=== PATIENT | female | born 1975 | race African-American/Black ===

== ENCOUNTER 2016-08-25 07:03 | Day surgery (SDC) | payer BC ==
[~2016-08-25 07:03] MED LIST: Buffered Lidocaine 1% SYR 3ML* 3 ML/SYR SYRINGE INTRADERM ONE; Famotidine IV* 10 MG/ML 2 ML (20 mg) IV ONE; Morphine INJ* 2 MG/ML 1 ML CARPUJECT IV PRN; PROCHLORPERAZINE INJ 5 MG/ML 2 ML VIAL IV PRN; fentaNYL* 50 MCG/ML 2 ML VIAL (100 MCG VIAL) IV PRN; oxyCODONE/Acetamin 5/325 MG* TAB PO PRN
[2016-08-25] MEDS ORDERED: Famotidine IV* 10 MG/ML 2 ML (20 mg) ONE (07:20)
[2016-08-25] MEDS ORDERED: Clindamycin 900 MG IVPREMIX(* 900 MG/50 ML SDV IV ONE (07:20)
[2016-08-25 07:30] LABS: Manual Entry Verification AS; UR Preg Internal Control QC Line Present; UR Preg Kit Lot# 6060104
[2016-08-25] MEDS ORDERED: fentaNYL* 50 MCG/ML 2 ML VIAL (100 MCG VIAL) ONE (07:52)
[2016-08-25] MEDS ORDERED: Midazolam* 1 MG/ML 5 ML VIAL (5 MG) ONE (07:52)
[2016-08-25] MEDS ORDERED: KETAMINE HCL* 50 MG/ML 10 ML VIAL ONE (07:52)
[2016-08-25] MEDS ORDERED: EPINEPHrine AMP 1 MG/ML ONE (08:21)
[2016-08-25] MEDS ORDERED: Bupivacaine 0.5% W/EPI SDV* 30 ML VIAL ONE (08:22)
[2016-08-25] MEDS ORDERED: Dexamethasone IV* 4 MG/ML 1 ML (4 MG) ONE (09:56)
[2016-08-25] MEDS ORDERED: Lidocaine 2% PF * 5 ML VIAL ONE (09:56)
[2016-08-25] MEDS ORDERED: Propofol* 10 MG/ML 20 ML BTL IV PUSH ONE (09:56)
[2016-08-25] MEDS ORDERED: Ondansetron INJ* 2 MG/ML VIAL ONE (09:56)
[2016-08-25] MEDS ORDERED: Morphine INJ* 10 MG/ML 1 ML CARPUJECT ONE (10:27)
[2016-08-25 12:49] VITALS: BP 118/80
--- NOTE | 2016-08-28 03:53 | OP ---
DATE OF OPERATION: 08/25/16 - [facility] DATE OF : 77 SURGEON: Matthew Lima MD ROLLER HAND: JUSTICE Zimmerman ANESTHESIOLOGIST: Dr. Bobo Hansen. ANESTHESIA: General anesthesia, LMA, regional anesthesia, interscalene block, right. PRE-OP DIAGNOSES: 1. Right shoulder rotator cuff tear, supraspinatus. 2. Right shoulder subacromial impingement with a prominent lateral spur as well as anterior. 3. Right shoulder AC joint arthritis. 4. Right shoulder possible proximal biceps tendinitis or superior labral tear. POST-OP DIAGNOSES: 1. Right shoulder rotator cuff tear, supraspinatus. 2. Right shoulder subacromial impingement with especially prominent lateral spur as well as anterior spur. 3. Right shoulder AC joint arthritis. 4. Right shoulder superior labral tear. OPERATIVE PROCEDURES: 1. Right shoulder examination under anesthesia. 2. Right shoulder arthroscopic rotator cuff repair, supraspinatus, double row. 3. Right shoulder subacromial decompression, arthroscopic. 4. Right shoulder arthroscopic distal clavicle resection. 5. Right shoulder arthroscopic extensive debridement including the superior labrum as well as the subacromial bursa. 6. Right shoulder arthroscopic release of proximal biceps tendon. ANTIBIOSIS: Clindamycin 900 mg IV x1. IV FLUIDS: See Anesthesia note. ESTIMATED BLOOD LOSS: Minimal. COMPLICATIONS: None. IMPLANTS: Mitek helix 5.5 mm double loaded suture anchors x2. Mitek helix knotless 5 mm suture anchor x1. 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 The patient states that her shoulder was jerked violently in the fall. Of note, the patient has a history of bariatric sleeve surgery. On exam, the patient had pain with supraspinatus stress testing, AC joint tenderness to palpation, proximal biceps tenderness to palpation, and a positive Speeds' test. X-rays demonstrated a large lateral acromial spur and significant downsloping of the anterior acromion. AC joint narrowing was also present. An MRI demonstrated full-thickness anterior supraspinatus rotator cuff tear, 14 mm anterior to posterior x9 mm, with fluid in the biceps tendon groove and moderate AC joint osteoarthritis. It should be noted that the patient also had a significant amount of subcutaneous tissue in her upper arm. The patient responded insufficiently to nonoperative management and opted for operative intervention which makes sense given the full thickness of this rotator cuff tear and the patient's young age and this being her dominant shoulder. DESCRIPTION OF PROCEDURE: Preoperative written consent. Operative extremity was marked in preop holding. At preop holding, Dr. Hansen did a regional interscalene anesthetic block. The patient was taken back to the operating room and placed in the lateral decubitus position in which Dr. Hansen placed the LMA. Axillary roll was placed. All bony prominences were padded. A beanbag was inflated. The right upper extremity was placed in 10 pounds of traction. Before the arm was placed in traction, examination under anesthesia was performed and demonstrated full passive range of motion in all directions of the right shoulder. The patient once in the traction had the right shoulder prepped and draped. Surgical time-out was performed. 20 cc of normal saline were injected from posterior end of the glenohumeral joint. A posterior glenohumeral joint portal was established using standard technique. Diagnostic arthroscopy was commenced. Anterior glenohumeral joint portal was established under direct visualization. Intra-articularly, I encountered a superior labral tear with 45 mm of lift off of the superior labrum from the superior rim of the glenoid. There was certainly some exposed superior labral footprint along the glenoid rim. This finding, in conjunction with the fluid seen on MRI of the biceps tendon sheath dictated that a biceps release would likely help pain referable both to the superior labral tear and the biceps pathology. Therefore , arthroscopic scissors were introduced from anterior and were used to cut the biceps near its origin. An arthroscopic shaver was used to debride the superior labrum as well as mild amount of rotator interval inflamed tissue. No significant articular cartilage damage was noted at the glenoid or the humeral head. Full thickness supraspinatus rotator cuff tendon tear was clearly visible within the joint. Instruments and fluid were removed from the glenohumeral joint. Subacromial space was then entered from posterior and anterior. Bursitis was less significant than I often see with rotator cuff tears, but the lateral subacromial portal was established under direct visualization and an arthroscopic shaver was introduced and used to debride bursitis tissue. Rotator cuff tear, crescent- shaped, the width of the supraspinatus tendon, was appreciated. VAPR was used to debride the undersurface of the acromion and then a subacromial decompression was performed with an arthroscopic ava. I removed at least 6 mm of the anterior hook of the acromion, which included prominent spur. I tried to come as posteriorly as possible and flatten out the significant lateral curve of the acromion noted on preoperative x-rays. I then prepared the rotator cuff tear and footprint, with the shaver debriding the edge of the rotator cuff tendon tissue and with a ava , debriding the rotator cuff footprint. I passed 2 suture anchors into the medial rotator cuff footprint through a superolateral incision. Horizontal mattress stitches were placed using a MiteMoxie JeanA passing device. These were then tied. Sutures from the medial row were then incorporated into a knotless lateral row Mitek anchor. This produced excellent connection of the torn rotator cuff to the rotator cuff footprint. Confirmed stability of the repair with range of motion of the humerus, internal and external rotation as well as with probing with an arthroscopic probe. I then addressed my attention to the AC joint. Bursitis was debrided with the shaver and VAPR. I then removed 8 mm of the distal clavicle with an arthroscopic ava. Instruments and fluid were removed from the subacromial space. The skin incisions were closed with figure- of-eight stitches using nylon 4- 0 suture, Xeroform, 4x4s, ABD, foam tape. The patient was placed into a sling with an abduction pillow. The patient was awakened, extubated, returned to the supine position. DISPOSITION: The patient was discharged when medically stable. The patient will follow up with me in 10 to 14 days postoperative. She will wear her sling and abduction pillow at all times except to come out several times a day for range of motion elbow, wrist, and fingers. Antibiotics, aspirin, Percocet. [id number]/CPS #: [id number] MADELYN
== END 2016-08-25 12:56 | disposition home or self-care (01) ==
LOC: OR 07:03
PROVIDERS: ATTEND Orthopaedic Surgery
DX: S46.011A Strain of muscle(s) and tendon(s) of the rotator cuff of right shoulder, initial encounter (principal); S43.491A Other sprain of right shoulder joint, initial encounter; M75.41 Impingement syndrome of right shoulder; M19.011 Primary osteoarthritis, right shoulder; W00.0XXA Fall on same level due to ice and snow, initial encounter; Y92.9 Unspecified place or not applicable
CPT/HCPCS: 81025; J0171; J1100; J2250; J2270; J2405; J2704; J3010

== ENCOUNTER 2017-03-11 10:17 | Emergency (ER) | payer BC ==
[2017-03-11] MEDS ORDERED: Ondansetron INJ* 2 MG/ML VIAL IV ONE (12:01)
[2017-03-11] MEDS ORDERED: Morphine INJ* 4 MG/ML 1 ML SYRINGE IV ONE (12:01)
[2017-03-11] MEDS ORDERED: NS 0.9% 1000 ML* 1,000 ML IV ONE (12:01)
[2017-03-11 12:46] LABS: Hematocrit 39 % (35-47); Hemoglobin 12.4 g/dl (12.0-16.0); Mean Corpuscular HGB Conc 32 g/dl (31-36); Mean Corpuscular Hemoglobin 27 pg (27-31); Mean Corpuscular Volume 83 fL (80-97); Mean Platelet Volume 7 um3 (7.4-10.4); Red Blood Count 4.67 10^6/ul (4.0-5.4); Red Cell Distribution Width 14 % (10.5-15)
[2017-03-11 13:06] LABS: ALT 24 U/L (7-52); AST 19 U/L (13-39); Albumin 4.1 g/dL (3.2-5.2); Alkaline Phosphatase 51 U/L (34-104); Anion Gap 4 mmol/L (2-11); BUN/Creatinine Ratio 16.7 (8-20); Blood Urea Nitrogen 11 mg/dL (6-24); CO2 Carbon Dioxide 28 mmol/L (22-32); Calcium 9.2 mg/dL (8.6-10.3); Chloride 105 mmol/L (101-111); EGFR African American 127.6 (>60); EGFR Non-African American 99.2 (>60); Globulin 2.7 g/dL (2-4); Glucose 88 mg/dL (70-100); Lipase 19 U/L (11.0-82.0); Potassium 4.1 mmol/L (3.5-5.0); Sodium 137 mmol/L (133-145); Total Protein 6.8 g/dL (6.4-8.9)
--- NOTE | 2017-03-11 13:16 | RAD ---
INDICATION: Left flank abdominal pain, known kidney stone. COMPARISON: Comparison is made with a prior CT of the abdomen and pelvis from January 30, 2014. TECHNIQUE: A CT scan of the abdomen and pelvis was performed without intravenous or oral contrast. Contiguous axial sections were obtained from the lung bases through the symphysis pubis. Images were reconstructed in the coronal and sagittal planes. FINDINGS: The lung bases are clear. No pleural effusion is present. The liver appears moderately enlarged and unchanged from the prior study. The spleen is normal in size. No significant focal abnormalities are seen on this noncontrast study. There is a faint calcification within the gallbladder possibly indicating cholelithiasis. The gallbladder is not distended. No gallbladder wall thickening is seen. The pancreas is not well-defined on this study although no gross abnormality is seen. The adrenal glands appear to be within normal limits. There are several small nonobstructing calculi in the lower pole of the left kidney measuring up to 0.4 cm in size. In addition there is a large calculus present within the left renal pelvis measuring up to 0.9 cm in size. No hydronephrosis is seen. In addition there are several small calcifications located on both sides along the posterior aspect of the urinary bladder likely representing phleboliths although a small nonobstructing calculus in the distal left ureter cannot be excluded. The aorta is normal in caliber without significant calcific plaque. No enlarged retroperitoneal lymph nodes are seen although the examination is limited due to a paucity of abdominal fat. The patient appears to be status post sleeve gastrectomy. The stomach, small and large bowel appear nondistended. The appendix is not well seen on this noncontrast study. There is a moderate to large amount of stool present throughout the colon. There is no evidence for diverticulitis or colitis. There is a small periumbilical hernia containing fat. The uterus is retroverted and enlarged. There is a T-shaped IUD present and a large peripherally calcified mass in the fundus of the uterus measuring 4.5 cm in size which is unchanged from the prior exam most consistent with a partially calcified leiomyoma. There is a tampon present within the vagina. No free intraperitoneal air or fluid is seen. No significant focal osseous abnormality is seen. IMPRESSION: 1. THERE IS A 0.9 CM CALCULUS PRESENT WITHIN THE LEFT RENAL PELVIS. THERE ARE SEVERAL ADDITIONAL LEFT LOWER POLE RENAL CALCULI. NO HYDRONEPHROSIS IS SEEN. THERE ARE ALSO CALCIFICATIONS ALONG THE POSTERIOR ASPECT OF THE URINARY BLADDER LIKELY REPRESENTING PHLEBOLITHS ALTHOUGH A NONOBSTRUCTING CALCULUS IN THE DISTAL LEFT URETER CANNOT BE EXCLUDED. 2. FIBROID UTERUS. 3. POSSIBLE CHOLELITHIASIS. 4. LARGE AMOUNT RETAINED STOOL.
[2017-03-11 15:16] LABS: Urine Bilirubin Negative (Negative); Urine Glucose Negative (Negative); Urine Nitrite Negative (Negative)
--- NOTE | 2017-03-11 15:44 | ED ---
Neli Martinez Edward, scribed for Cricket Magallon on 03/11/17 at 1137 . GI/ HPI - HPI Summary HPI Summary: 41 y/o female presents to the ED c/o sudden onset, waxing and waning L sided flank pain starting last night that became worse this morning. The pain radiates around the back. It is rated at 7/10 in severity at triage. Denies blood in the urine. Associated sx: chronic lower ABD pain (1 month) aggravated with food - pt has an appointment for a CT scan regarding this pain with Dr. Danielson. PMHx fibroid, kidney stones. SHx gastrectomy. Pt is on her period. - History of Current Complaint Chief Complaint: EDFlankPain Time Seen by Provider: 03/11/17 11:35 Stated Complaint: LEFT FLANK PAIN Hx Obtained From: Patient Onset/Duration: Started Days Ago, Worse Since - This morning Severity: Moderate Current Severity: Moderate Pain Intensity: 7 Pain Radiates to: Back Associated Signs and Symptoms: Positive: Flank Pain - L side, Abdominal Pain. Negative: Other: - No blood in the urine, no vaginal discharge - Additional Pertinent History Primary Care Physician: [id number] - Allergy/Home Medications Allergies/Adverse Reactions: Allergies Allergy/AdvReac Type Severity Reaction Status Date / Time Metronidazole Allergy BURNING Verified 08/25/16 07:38 [From MetroGel-Vaginal] Penicillins Allergy Rash Verified 08/25/16 07:38 PMH/Surg Hx/FS Hx/Imm Hx Previously Healthy: No Endocrine/Hematology History: Denies: Hx Diabetes Cardiovascular History: Denies: Hx Hypertension, Hx Pacemaker/ICD Respiratory History: Denies: Other Respiratory Problems/Disorders GI History: Denies: Other GI Disorders History: Reports: Hx Kidney Stones - 2 CURRENTLY ON LEFT, Other Problems/ Disorders - Fibroid Denies: Hx Renal Disease Musculoskeletal History: Reports: Hx Arthritis - HIPS Sensory History: Reports: Hx Contacts or Glasses - GLASSES Denies: Hx Hearing Aid Opthamlomology History: Reports: Hx Contacts or Glasses - GLASSES Psychiatric History: Denies: Hx Panic Disorder - Surgical History Surgery Procedure, Year, and Place: 1986-LEFT HIP PINNING and REMOVAL OF PIN, [place]. 1995-BIL[place]AL BRE[place]U[facility], [place]. [facility] [place]STOSCOPY, URETEROSCOPY, [place] U[place] [facility] [place] ESWL LEFT RENAL CALCULUS, REMOVAL OF LEFT [place]TERAL STENT, [facility] [place]. 2015 LAPAROSCOPIC SLEEVE GASTRECTOMY, [facility] [place] Hx Anesthesia Reactions: No Infectious Disease History: No Infectious Disease History: Denies: Traveled Outside the [place] in Last 30 Days - Family History Known Family History: Negative: Other - Bleeding/clotting disorders - Social History Alcohol Use: None Alcohol Amount: MAYBE 5 PER YEAR, SPECIAL OCCASIONS Hx Substance Use: No Substance Use Type: Reports: None Hx Tobacco Use: No Smoking Status (MU): Never Smoked Tobacco Review of Systems Constitutional: Negative Eyes: Negative ENT: Negative Cardiovascular: Negative Respiratory: Negative Positive: Abdominal Pain Positive: flank pain - L. Negative: discharge, hematuria Musculoskeletal: Negative Skin: Negative Neurological: Negative Psychological: Normal All Other Systems Reviewed And Are Negative: Yes Physical Exam Triage Information Reviewed: Yes Vital Signs On Initial Exam: Initial Vitals Temp Pulse Resp BP Pulse Ox 97.8 F 64 17 114/73 100 03/11/17 10:24 03/11/17 10:24 03/11/17 10:24 03/11/17 10:24 03/11/17 10:24 Vital Signs Reviewed: Yes Appearance: Positive: Well-Appearing, No Pain Distress Skin: Positive: Warm, Skin Color Reflects Adequate Perfusion, Dry Head/Face: Positive: Normal Head/Face Inspection Eyes: Positive: EOMI, GUILLERMO ENT: Positive: Normal ENT inspection Neck: Positive: Supple, Nontender Respiratory/Lung Sounds: Positive: Clear to Auscultation, Breath Sounds Present Cardiovascular: Positive: RRR, Pulses are Symmetrical in both Upper and Lower Extremities Abdomen Description: Positive: Soft, Other: - Mild tenderness in the LLQ Bowel Sounds: Positive: Present Musculoskeletal: Positive: Normal, Strength/ROM Intact Neurological: Positive: Normal, Sensory/Motor Intact, Alert, Oriented to Person Place, Time Diagnostics - Vital Signs Vital Signs Temp Pulse Resp BP Pulse Ox 03/11/17 10:24 97.8 F 64 17 114/73 100 - Laboratory Result Diagrams: 03/11/17 12:30 03/11/17 12:30 Lab Statement: Any lab studies that have been ordered have been reviewed, and results considered in the medical decision making process. - CT ABD/PEL CT CT Interpretation: No Acute Changes - 1. THERE IS A 0.9 CM CALCULUS PRESENT WITHIN THE LEFT RENAL PELVIS. THERE ARE SEVERAL ADDITIONAL LEFT LOWER POLE RENAL CALCULI. NO HYDRONEPHROSIS IS SEEN. THERE ARE ALSO CALCIFICATIONS ALONG THE POSTERIOR ASPECT OF THE URINARY BLADDER LIKELY REPRESENTING PHLEBOLITHS ALTHOUGH A NONOBSTRUCTING CALCULUS IN THE DISTAL LEFT URETER CANNOT BE EXCLUDED. 2. FIBROID UTERUS. 3. POSSIBLE CHOLELITHIASIS. 4. LARGE AMOUNT RETAINED STOOL. ED PHYSICIAN AGREEABLE CT Interpretation Completed By: Radiologist Re-Evaluation - Re-Evaluation 1 Re-Evaluation Time: 15:19 GIGU Course/Dx - Course Assessment/Plan: 41 y/o female presents to the ED c/o sudden onset, waxing and waning L sided flank pain starting last night that became worse this morning. The pain radiates around the back. It is rated at 7/10 in severity at triage. Denies blood in the urine. Associated sx: chronic lower ABD pain (1 month) aggravated with food - pt has an appointment for a CT scan regarding this pain with Dr. Danielson. PMHx fibroid, kidney stones. SHx gastrectomy. Pt is on her period. ABD/PEL CT SHOWS 1. THERE IS A 0.9 CM CALCULUS PRESENT WITHIN THE LEFT RENAL PELVIS. THERE ARE SEVERAL ADDITIONAL LEFT LOWER POLE RENAL CALCULI. NO HYDRONEPHROSIS IS SEEN. THERE ARE ALSO CALCIFICATIONS ALONG THE POSTERIOR ASPECT OF THE URINARY BLADDER LIKELY REPRESENTING PHLEBOLITHS ALTHOUGH A NONOBSTRUCTING CALCULUS IN THE DISTAL LEFT URETER CANNOT BE EXCLUDED. 2. FIBROID UTERUS. 3. POSSIBLE CHOLELITHIASIS. 4. LARGE AMOUNT RETAINED STOOL. CT Shows no acute findings. Labs and test results done. Pt will be d/c home with f/ u with PCP. Pt instructed to take Colace and Dulcolax at home. - Diagnoses Provider Diagnoses: Nonspecific abdominal pain Discharge - Discharge Plan Condition: Stable Disposition: HOME Patient Education Materials: Abdominal Pain (ED) Referrals: Aashish Starks MD [Primary Care Provider] - 3 Days (PLEASE F/U IN 2-3 DAYS) Additional Instructions: PLEASE TAKE COLACE AND DULCOLAX AT HOME INSTRUCTED The documentation as recorded by the Neli king Edward accurately reflects the service I personally performed and the decisions made by , Cricket Magallon.
[2017-03-11 15:58] VITALS: BP 98/59
== END 2017-03-11 16:07 | disposition home or self-care (01) ==
LOC: ED 10:17
DX: R10.84 Generalized abdominal pain (principal)
CPT/HCPCS: 36415; 74176; 80053; 81003; 83690; 84702; 85025; 85610; 85730; 96374; 96375; 99282; J2270; J2405

== ENCOUNTER 2017-04-02 10:22 | Day surgery (SDC) | payer BC ==
--- NOTE | 2017-03-29 22:08 | HP ---
CC: Dr. Aashish Starks * ADMITTING HISTORY AND PHYSICAL: DATE OF ADMISSION: 04/02/17 PREOPERATIVE DIAGNOSES: 1. Left flank pain. 2. Left renal calculus. PLANNED PROCEDURE: Left stent insertion and shock wave lithotripsy of left renal calculus. SURGEON: Dr. Perla. ADMITTING HISTORY AND PHYSICAL: Sanjuanita Moe is a 41-year-old lady with a history of recurrent renal calculi. She had been evaluated in the emergency room for left flank pain and at that time was noted to have an approximately 1-cm stone in the left renal pelvis. She was seen in my office subsequently and was noted to have very mild left hydronephrosis with a 1.2-cm calculus in the renal pelvis on the left side. PAST MEDICAL HISTORY: Significant for recurrent renal calculi. MEDICATIONS ON ADMISSION: Ibuprofen p.r.n. ALLERGIES: PENICILLIN (rash). REVIEW OF SYSTEMS: She is otherwise in excellent health. There is no history of diabetes mellitus or any other major systemic illness. PHYSICAL EXAMINATION GENERAL: Reveals a pleasant lady, who currently is not in any pain. VITAL SIGNS: Blood pressure is 124/72, pulse 53 per minute, oxygen saturation 98% on room air. LUNGS: Clear bilaterally. CARDIOVASCULAR: Regular rate and rhythm. S1, S2. ABDOMEN: Soft with mild left flank tenderness. IMPRESSION: A 41-year-old lady with large calculus in the left renal pelvis with very mild left hydronephrosis. I have discussed the procedure including possible risks of bleeding, infection, incomplete fragmentation, possible injury to the kidney. PLAN: The plan is for left stent insertion and shock wave lithotripsy of left renal calculus. [id number]/CPS #: [id number] [facility]
[~2017-04-02 10:22] MED LIST changes: +Buffered Lidocaine 0.9% SYRIN* 5 ML/SYR SYRINGE INTRADERM ONE; -Buffered Lidocaine 1% SYR 3ML* 3 ML/SYR SYRINGE INTRADERM ONE; -Famotidine IV* 10 MG/ML 2 ML (20 mg) IV ONE; -Morphine INJ* 2 MG/ML 1 ML CARPUJECT IV PRN; -PROCHLORPERAZINE INJ 5 MG/ML 2 ML VIAL IV PRN; -fentaNYL* 50 MCG/ML 2 ML VIAL (100 MCG VIAL) IV PRN; -oxyCODONE/Acetamin 5/325 MG* TAB PO PRN
[2017-04-02] MEDS ORDERED: Levofloxacin 500 MG IVPREMIX(* 500 MG/100 ML BAG IVPB ONE (10:36)
[2017-04-02] MEDS ORDERED: Buffered Lidocaine 0.9% SYRIN* 5 ML/SYR SYRINGE ONE (10:36)
--- NOTE | 2017-04-02 11:04 | RAD ---
HISTORY: Shock wave lithotripsy COMPARISONS: March 22, 2017 VIEWS: Frontal views of the abdomen. FINDINGS: BOWEL: There is a nonobstructive bowel gas pattern. There is a large amount of stool within the colon. CALCULI: There is a stable 0.6 cm calculus overlying the lower pole of left kidney. A calcific uterine fibroid is noted. BONES AND SOFT TISSUES: Degenerative changes are noted most pronounced in the left hip OTHER FINDINGS: The lung bases are clear. There is no subphrenic gas. At IUD is noted. There is postsurgical change to the left upper quadrant IMPRESSION: LEFT NEPHROLITHIASIS
[2017-04-02] MEDS ORDERED: Propofol* 10 MG/ML 20 ML BTL IV PUSH ONE (12:15)
[2017-04-02] MEDS ORDERED: fentaNYL* 50 MCG/ML 2 ML VIAL (100 MCG VIAL) ONE ×2 (12:15→13:56)
[2017-04-02] MEDS ORDERED: Lidocaine 2% PF * 5 ML VIAL ONE (12:15)
[2017-04-02] MEDS ORDERED: Furosemide IV* 10 MG/ML 2 ML VIAL (20 MG) ONE (12:27)
[2017-04-02] MEDS ORDERED: oxyCODONE/Acetamin 5/325 MG* TAB PO PRN (12:41)
[2017-04-02] MEDS ORDERED: Iohexol 180 (CONTRAST) 10 ML SDV IV ONE (13:05)
[2017-04-02] MEDS: fentaNYL* 50 MCG/ML 2 ML VIAL (100 MCG VIAL) IV PRN ×2 (13:58→14:14)
[2017-04-02] MEDS ORDERED: CMCS:Solifenacin(NF) 5 MG TAB PO ONE (14:00)
[2017-04-02 15:23] VITALS: BP 114/86
--- NOTE | 2017-04-03 07:51 | RAD ---
HISTORY: Left renal calculi COMPARISONS: April 02, 2017 VIEWS: Frontal views of the abdomen. FINDINGS: BOWEL: There is a nonspecific bowel gas pattern, with nondilated small bowel gas noted. CALCULI: The left renal calculus noted on the previous examination is not well-visualized on the current examination. There has been interval placement of left ureteral stent. Again noted is a calcified uterine fibroid. BONES AND SOFT TISSUES: Degenerative changes are noted OTHER FINDINGS: The lung bases are not well visualized. There is no subphrenic gas. An IUD is noted IMPRESSION: LEFT URETERAL STENT
--- NOTE | 2017-04-03 14:48 | OP ---
CC: Dr. Aashish Starks; Dr. Davin Perla* OPERATIVE NOTE: DATE OF OPERATION: 04/02/17 - [facility] DATE OF : [birth year] AGE: 41 years. SEX: Female. SURGEON: Davin Perla MD. ANESTHESIOLOGIST: Dr. Ac. ANESTHESIA: General. PRE-OP DIAGNOSIS: Left renal calculus. POST-OP DIAGNOSIS: Left renal calculus. OPERATIVE PROCEDURE: 1. Shock wave lithotripsy, left renal calculus. 2. Cystoscopy, left retrograde, and left stent insertion. COMPLICATIONS: None. STENT USED: 6-Indonesian stent, left ureter. POSTOPERATIVE CONDITION: Stable. INDICATIONS: Sanjuanita Moe is a 41-year-old lady who was evaluated and noted to have an approximately 10 to 11 mm calculus in the left renal pelvis. DESCRIPTION OF PROCEDURE: After induction of general anesthesia, the patient was placed on the lithotripsy table in supine position. The calculus, which was fairly dense, was localized easily using fluoroscopy and shockwave lithotripsy was commenced at a rate of 60 shocks per minute. After the initial 300 shocks, there was a pause in lithotripsy to minimize any potential trauma to the kidney. Lithotripsy was then resumed and a total of 2400 shocks were administered. The stone certainly appeared to be fragmented, but because of the large initial size of the calculus, my concern was that the fragment themselves could be obstructing in nature, so I elected to proceed with a stent insertion. The patient was placed in dorsal lithotomy position, cystoscopy was performed. A guidewire was introduced into the left ureter. Retrograde pyelogram revealed fullness of the left collecting system. A 6-Indonesian stent was introduced and positioned under fluoroscopy, with good proximal and distal positioning obtained. A 16-Indonesian Rothman was placed for temporary bladder drainage. The patient tolerated the procedure satisfactorily and was transferred back to recovery area in stable condition. [id number]/[facility] #: [id number] [facility]US[facility]
== END 2017-04-02 16:10 | disposition home or self-care (01) ==
LOC: OR 10:22
PROVIDERS: ATTEND Urology
DX: N13.2 Hydronephrosis with renal and ureteral calculous obstruction (principal); M19.90 Unspecified osteoarthritis, unspecified site
CPT/HCPCS: 74000; 81025; C1876; J1940; J1956; J2704; J3010

== ENCOUNTER 2017-07-04 10:22 | Day surgery (SDC) | payer BC ==
[2017-07-04] MEDS ORDERED: HYDROmorphone INJ* 1 MG/ML CARPUJECT SYRINGE ONE ×2 (10:33→11:32)
[2017-07-04] MEDS ORDERED: Ondansetron INJ* 2 MG/ML VIAL IV PRN ×2 (10:34→16:24)
[2017-07-04] MEDS: HYDROmorphone INJ* 1 MG/ML CARPUJECT SYRINGE IV PRN ×2 (10:52→14:17)
[2017-07-04] MEDS ORDERED: Levofloxacin 500 MG IVPREMIX(* 500 MG/100 ML BAG IVPB ONE ×2 (12:00→15:17)
[2017-07-04] MEDS ORDERED: Gentamicin IVPREMIX 160 MG/160 ML BAG IV ONE (12:00)
[2017-07-04] MEDS ORDERED: Dexamethasone IV* 4 MG/ML 1 ML (4 MG) ONE (15:57)
[2017-07-04] MEDS ORDERED: Propofol* 10 MG/ML 20 ML BTL IV PUSH ONE (15:57)
[2017-07-04] MEDS ORDERED: Ondansetron INJ* 2 MG/ML VIAL ONE (15:57)
[2017-07-04] MEDS ORDERED: Iohexol 180 (CONTRAST) 10 ML SDV IV ONE (15:57)
[2017-07-04] MEDS ORDERED: fentaNYL* 50 MCG/ML 2 ML VIAL (100 MCG VIAL) ONE (15:57)
[2017-07-04] MEDS ORDERED: Midazolam* 1 MG/ML 2 ML VIAL (2 MG) ONE (15:58)
[2017-07-04] MEDS ORDERED: fentaNYL* 50 MCG/ML 2 ML VIAL (100 MCG VIAL) IV PRN (16:24)
[2017-07-04] MEDS ORDERED: DiMENhydriNATE IV* 50 MG/ML VIAL IV PUSH PRN (16:24)
[2017-07-04] MEDS ORDERED: HYDROmorphone INJ* 1 MG/ML CARPUJECT SYRINGE IV PRN (16:24)
[2017-07-04] MEDS ORDERED: oxyCODONE/Acetamin 5/325 MG* TAB ONE (17:13)
--- NOTE | 2017-07-04 17:19 | RAD ---
INDICATION: Cystoscopy left stent placement. COMPARISON: Comparison is made with a prior KUB study from June 29, 2017. TECHNIQUE: 6 seconds of intermittent fluoroscopic guidance were provided and 6 spot films of the abdomen were centered on the left side. FINDINGS: There is partial opacification of the left renal collecting system. Subsequently there is placement of a double-J stent catheter on the left side which demonstrates normal course. There is a calcification which projects over the pelvis which appears to correlate with a peripherally calcified fibroid on a prior CT from March 2017. IMPRESSION: INTRAOPERATIVE CONTROL FILMS. CPT II Codes: 6045F
[2017-07-04 17:51] VITALS: BP 125/70
--- NOTE | 2017-07-04 18:48 | RAD ---
INDICATION: Postop left ureteral stent placement. COMPARISON: Comparison is made with a prior KUB series from June 29, 2017. TECHNIQUE: Frontal supine films of the abdomen were obtained. FINDINGS: The small bowel and colon appear nondistended. There is a left ureteral stent catheter present which demonstrates normal course. There is a T-shaped IUD which projects over the pelvis. There is also a large peripherally calcified mass which projects over the pelvis which correlates with a fibroid on a prior CT of the abdomen and pelvis from March 2017. IMPRESSION: STATUS POST LEFT URETERAL STENT PLACEMENT.
--- NOTE | 2017-07-05 03:02 | OP ---
CC: Dr. Aashish Starks * DATE OF OPERATION: 07/04/17 - [facility] DATE OF : 77 SURGEON: Davin Perla MD ANESTHESIOLOGIST: Bill Osborne MD ANESTHESIA: General. PRE-OP DIAGNOSES: 1. Left hydronephrosis. 2. Obstructing calculus, left ureter. POST-OP DIAGNOSES: 1. Left hydronephrosis. 2. Obstructing calculus, left ureter. OPERATIVE PROCEDURE: Cystoscopy, left retrograde pyelogram, left ureteroscopy, laser lithotripsy of left ureteral calculus and removal of calculus fragments, and left stent insertion. INDICATIONS: Sanjuanita Moe is a 41-year-old lady with a history of recurrent renal calculi. She had been scheduled for lithotripsy of a left renal calculus next week, but presented earlier today with severe left flank pain and nausea. COMPLICATIONS: None. POSTOPERATIVE CONDITION: Stable. STENT USED: 6-British stent, left ureter. OPERATIVE FINDINGS: 1. Left hydronephrosis. 2. Large (9 to 10 mm) calculus obstructing left mid ureter. DESCRIPTION OF PROCEDURE: After induction of general anesthesia, the patient was placed in dorsal lithotomy position. Sequential compression devices were in place and functioning. Initial cystoscopy revealed a normal-appearing bladder with some distortion in the area of the left orifice, which I suspect was secondary to edema. There was no evidence of any suspicious bladder lesions noted. A guidewire was introduced into the left ureter 4 to 5 cm above the ureterovesical junction. Resistance was encountered and once wire was advanced proximally, there were significant drainage of very dark colored urine noted from the left kidney. Retrograde pyelogram revealed left hydronephrosis. A 6-British semi-rigid ureteroscope was introduced and advanced under direct vision. At the junction of the [id number] left ureter, a fairly large 9- to 10-mm calculus was noted. Using a 550-micron holmium laser, this was successfully broken up into multiple fragments, and all of the fragments were removed using the grasper. The ureteroscope was carefully advanced into the proximal ureter to make sure there were no additional stones or fragments and none were noted. A 6-British stent was introduced and positioned under fluoroscopy with good proximal and distal positioning obtained. The bladder was emptied. The patient tolerated the procedure satisfactorily and was transferred back to the recovery area in stable condition. [id number]/[facility] #: [id number] [facility] HOSPITALChiara
[2017-07-05] MEDS ORDERED: Influenza VAC *QUAD* 2017-18* 0.5 ML SYRINGE IM ONE (09:00)
[2017-07-05] MEDS ORDERED: Pneumococcal *Vac Polyvalent 0.5 ML VIAL IM ONE (09:00)
== END 2017-07-04 17:52 | disposition home or self-care (01) ==
LOC: OR 10:22 → SSU 10:22 → OR 17:52
PROVIDERS: ATTEND Urology
DX: N13.2 Hydronephrosis with renal and ureteral calculous obstruction (principal); M19.90 Unspecified osteoarthritis, unspecified site
CPT/HCPCS: 74000; 74420; 81025; 82365; 88300; A9270-GY; C1876; J1100; J1170; J1580; J1956; J2250; J2405; J2704; J3010

== ENCOUNTER 2019-05-26 11:23 | Emergency (ER) | payer BC ==
[2019-05-26 13:47] VITALS: BP 109/70
[2019-05-26 13:48] LABS: Rapid Strep Molecular Negative (Negative)
[2019-05-26 13:58] LABS: Influenza A Molecular NEGATIVE (Negative); Influenza B Molecular NEGATIVE (Negative)
--- NOTE | 2019-05-26 14:57 | ED ---
Respiratory - HPI Summary HPI Summary: Pt. is a 43 y.o female who presents to the ER for ongoing cough and fever. x 5 days. 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 No past medical hx. Pt. notes she has had a fever of 103 for the last few days. 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 Pt. also notes sore throat. Pt. denies abd. pain, V/D, urinary sxs. Sxs are mild in severity. No current modifying factors. - History of Current Complaint Chief Complaint: EDFever Stated Complaint: FEVER Time Seen by Provider: 05/26/19 13:12 Hx Obtained From: Patient Pain Intensity: 0 - Allergy/Home Medications Allergies/Adverse Reactions: Allergies Allergy/AdvReac Type Severity Reaction Status Date / Time metronidazole [From Metrogel] Allergy Unknown Verified 05/26/19 11:42 Reaction Details Penicillins Allergy Rash Verified 05/26/19 11:42 PMH/Surg Hx/FS Hx/Imm Hx Previously Healthy: Yes Endocrine/Hematology History: Denies: Hx Diabetes Cardiovascular History: Denies: Hx Angina, Hx Coronary Artery Disease, Hx Hypercholesterolemia, Hx Hypertension, Hx Myocardial Infarction, Hx Pacemaker/ICD, Hx Valvular Heart Disease Respiratory History: Reports: Hx Seasonal Allergies Denies: Hx Asthma, Hx Chronic Obstructive Pulmonary Disease (COPD), Other Respiratory Problems/Disorders GI History: Denies: Other GI Disorders History: Reports: Hx Kidney Stones - HAS HAD STONES X 3 IN THE PAST, 1 LARGE STONE CURRENTLY ON LEFT, Other Problems/Disorders - Fibroid Denies: Hx Renal Disease Musculoskeletal History: Reports: Hx Arthritis - OSTEOARTHRITIS LEFT HIP, Hx Bursitis - hips Comment Only: Other Musculoskeletal History - RIGHT ROTATOR CUFF REPAIR 2016 Sensory History: Reports: Hx Contacts or Glasses Denies: Hx Hearing Aid Opthamlomology History: Reports: Hx Contacts or Glasses Psychiatric History: Denies: Hx Panic Disorder - Surgical History Surgery Procedure, Year, and Place: LEFT HIP PINNING 1987 REMOVAL 1988. BREAST REDUCTION 1996. 3X LITHROTRIPSY. BARIATRIC SLEEVE 08/2015. RIGHT ROTATOR CUFF 08/2016 Hx Anesthesia Reactions: No - bradycardia in recovery Infectious Disease History: No Infectious Disease History: Denies: Traveled Outside the [place] in Last 30 Days - Family History Known Family History: Positive: Non-Contributory Negative: Other - Bleeding/clotting disorders - Social History Occupation: Employed Full-time Lives: With Family Alcohol Use: None Alcohol Amount: MAYBE 5-10 PER YEAR, SPECIAL OCCASIONS Hx Substance Use: No Substance Use Type: Reports: None Hx Tobacco Use: No Smoking Status (MU): Never Smoked Tobacco Have You Smoked in the Last Year: No Review of Systems Positive: Fever, Chills Eyes: Negative ENT: Negative Cardiovascular: Negative Positive: Shortness Of Breath, Cough Gastrointestinal: Negative Negative: Abdominal Pain, Vomiting, Diarrhea Genitourinary: Negative Skin: Negative Neurological: Negative All Other Systems Reviewed And Are Negative: Yes Physical Exam Triage Information Reviewed: Yes Vital Signs On Initial Exam: Initial Vitals Temp Pulse Resp BP Pulse Ox 98.5 F 89 20 93/69 96 05/26/19 11:37 05/26/19 11:37 05/26/19 11:37 05/26/19 11:37 05/26/19 11:37 Vital Signs Reviewed: Yes Appearance: Positive: Well-Appearing - Pt. sitting up in bed in NAD. Breathing easily on RA. Skin: Positive: Warm, Dry Head/Face: Positive: Normal Head/Face Inspection Eyes: Positive: Normal, EOMI ENT: Positive: Pharyngeal erythema, TMs normal, Tonsillar swelling, Uvula midline. Negative: Tonsillar exudate, Trismus, Muffled voice Neck: Positive: Supple, Nontender. Negative: Nuchal Rigidity Respiratory/Lung Sounds: Positive: Other - Diminished breath sounds in bases.. Negative: Wheezes, Unable to speak in full sentences Cardiovascular: Positive: Normal, RRR Neurological: Positive: Normal, CN Intact II-III Psychiatric: Positive: Affect/Mood Appropriate Procedures - Sedation Patient Received Moderate/Deep Sedation with Procedure: No Diagnostics - Vital Signs Vital Signs Temp Pulse Resp BP Pulse Ox 05/26/19 13:46 98.6 F 73 18 109/70 97 05/26/19 11:37 98.5 F 89 20 93/69 96 - Laboratory Lab Results: Lab Results 05/26/19 05/26/19 Range/Units 13:20 13:20 Influenza A (Rapid) Negative (Negative) Influenza B (Rapid) Negative (Negative) Group A Strep Rapid Negative (Negative) Lab Statement: Any lab studies that have been ordered have been reviewed, and results considered in the medical decision making process. Disposition - Course Course Of Treatment: Pt. presenting with ongoing cough and fever. O2 saturation 96% on RA. BP initially low but improved on recheck. Negative flu and strep. CXR shows a right lower lobe infiltrate per radiology. Will tx with zithromax. To increase fluid and rest. Tylenol or motrin for pain and fever as directed. To f.u with pcp in one week and return to er if sxs change or worsen. Pt. undertstands and agrees with plan. - Diagnoses Provider Diagnoses: Pneumonia Discharge ED - Sign-Out/Discharge Documenting (check all that apply): Patient Departure - Discharge Plan Condition: Good Disposition: HOME Prescriptions: Azithromyxin NGOC (NF) [Z-Ngoc (Zithromax) 250 mg tabs #6] 2 tab PO .TODAY, THEN 1 DAILY #6 tab Patient Education Materials: Community Acquired Pneumonia (ED) Forms: *Work Release Referrals: Danitza Zee MD [Primary Care Provider] - Additional Instructions: Schedule a follow up appointment with PCP within one week for recheck Take antibiotic as directed Tylenol or Motrin for fever as directed Increase fluids and rest Return to ER if symptoms change or worsen - Billing Disposition and Condition Condition: GOOD Disposition: Home
== END 2019-05-26 14:22 | disposition home or self-care (01) ==
LOC: ED 11:23
DX: J18.9 Pneumonia, unspecified organism (principal); R05 Cough; R06.02 Shortness of breath; Z87.442 Personal history of urinary calculi
CPT/HCPCS: 71046; 87651; 99282

== ENCOUNTER 2019-12-11 09:00 | Observation (INO) ==
[~2019-12-11 09:00] MED LIST changes: -Buffered Lidocaine 0.9% SYRIN* 5 ML/SYR SYRINGE INTRADERM ONE; +Lactated Ringers 1000 ml BAG 1,000 ML IV SCH
[2019-12-11] MEDS ORDERED: Glycopyrrolate IV 0.2 MG/ML 1 ML VIAL ONE (11:19)
[2019-12-11] MEDS ORDERED: Dexamethasone IV 4 MG/ML VIAL 1 ml VIAL ONE (11:19)
[2019-12-11] MEDS ORDERED: Midazolam 2 mg/2 ml VIAL 1 mg/ml 2 ml VIAL (2 mg) ONE (11:19)
[2019-12-11] MEDS ORDERED: Ondansetron 4 mg VIAL 2 MG/ML 2 ml VIAL ONE (11:19)
[2019-12-11] MEDS ORDERED: fentaNYL 100 mcg/2 ml 50 MCG/ML VIAL ONE (11:19)
[2019-12-11] MEDS ORDERED: Propofol 10 MG/ML 20 ML BTL ONE (11:19)
[2019-12-11] MEDS ORDERED: Rocuronium 50 mg VIAL 10 mg/ml 5 ml VIAL (50 mg) ONE (11:20)
[2019-12-11] MEDS ORDERED: Clindamycin 900 MG/D5W BAG(*) 900 MG/50 ML BAG IVPB ONE (11:53)
[2019-12-11] MEDS ORDERED: ROPIVACAINE 5 MG/ML 30 ML BTL (0.5%) ONE (12:49)
[2019-12-11] MEDS ORDERED: Naloxone 0.4 mg VIAL 0.4 mg/ml 1 ml VIAL IV PRN (14:32)
[2019-12-11] MEDS ORDERED: Bupivacaine 0.5% SDV PF 30ML VIAL ONE (15:46)
[2019-12-11] MEDS ORDERED: diPHENhydraMINE IV 50 MG/ML 1 ml VIAL (BENADRYL) IV PRN (16:03)
[2019-12-11] MEDS ORDERED: diPHENhydraMINE 25 mg TAB PO PRN (16:03)
[2019-12-11] MEDS ORDERED: Ondansetron 4 mg VIAL 2 MG/ML 2 ml VIAL IV PRN (16:03)
[2019-12-11] MEDS ORDERED: Magnesium Hydroxide LIQ 30 ML UDC PO PRN (16:03)
[2019-12-11] MEDS ORDERED: Ondansetron ODT 4 mg TAB 4 MG TAB PO PRN (16:03)
[2019-12-11] MEDS ORDERED: Lactulose 30 ml UDC PO PRN (16:03)
[2019-12-11] MEDS: Lactated Ringers 1000 ml BAG 1,000 ML IV SCH (17:53)
[2019-12-11] MEDS: oxyCODONE/Acetamin 5/325 mg TAB PO PRN ×2 (18:27→22:29)
[2019-12-11] MEDS: Magnesium Hydroxide LIQ 30 ML UDC PO SCH (22:29)
[2019-12-11] MEDS: Clindamycin 600 MG/D5W BAG(*) 600 MG/50 ML BAG IV SCH (22:50)
[2019-12-12] MEDS: Lactated Ringers 1000 ml BAG 1,000 ML IV SCH (03:30)
[2019-12-12] MEDS: oxyCODONE/Acetamin 5/325 mg TAB PO PRN ×3 (03:36→14:25)
[2019-12-12 05:11] LABS: Hematocrit 27 % (35-47); Hemoglobin 9.2 g/dL (12.0-16.0); Platelet Count 230 10^3/uL (150-450)
[2019-12-12] MEDS: Clindamycin 600 MG/D5W BAG(*) 600 MG/50 ML BAG IV SCH ×2 (05:11→13:36)
[2019-12-12 05:30] LABS: BUN/Creatinine Ratio 18.5 (8-20); EGFR African American 149.1 (>60); EGFR Non-African American 123.2 (>60)
[2019-12-12] MEDS: Magnesium Hydroxide LIQ 30 ML UDC PO SCH (08:11)
[2019-12-12] MEDS ORDERED: DULoxetine DR 60 mg CAP PO SCH (09:00)
[2019-12-12] MEDS ORDERED: Vitamin THERAPEUTIC TAB PO SCH (09:00)
[2019-12-12 11:18] VITALS: BP 107/62
== END 2019-12-12 14:51 | disposition home or self-care (01) ==
LOC: INTOOBSV 12:04 → AA 12:04 → SSU 16:03
PROVIDERS: ADMIT Orthopaedic Surgery Adult Reconstructive Orthopaedic Surgery; ATTEND Orthopaedic Surgery Adult Reconstructive Orthopaedic Surgery